=== PATIENT | female | born 1975 | race Two or more races ===

== ENCOUNTER 2024-09-07 11:45 | Outpatient (RCR) | payer BC, SELFPAY ==
[2024-09-06 16:10] LABS: Basophils % (Auto) 0 % (0-2.5); Eosinophils # (Auto) 0.1 Thou/mm3 (0.0-0.5); Eosinophils % (Auto) 3 % (0-10); Hematocrit 35.9 % (36.0-46.0); Hemoglobin 12.4 g/dL (12.0-16.0); Immature Granulocytes % (Auto) 0 % (0-0); Immature Granulocytes Auto 0.01 Thou/mm3 (0.00-0.00); Lymphocytes # (Auto) 1.9 Thou/mm3 (1.0-4.8); Lymphocytes % (Auto) 39 % (10-50); Mean Corpuscular HGB Conc 34.5 g/dl (31.0-37.0); Mean Corpuscular Hemoglobin 31.3 pg (25.0-35.0); Mean Corpuscular Volume 91 fL (80-100); Monocytes # (Auto) 0.5 Thou/mm3 (0.0-0.8); Monocytes % (Auto) 11 % (0-12); Neutrophils # (Auto) 2.3 Thou/mm3 (1.8-7.7); Neutrophils % (Auto) 47 % (37-80); Nucleated Red Blood Cell % 0 /100 WBC (0); Platelet Count 224 Thou/mm3 (140-440); RDW Standard Deviation 40.7 fL (36.4-46.3); Red Blood Count 3.96 Miln/mm3 (4.00-5.20); White Blood Count 4.8 Thou/mm3 (3.6-11.0)
[2024-09-06 17:43] LABS: Alanine Aminotransferase 25 U/L (10-49); Albumin, Serum 4.4 gm/dL (3.5-5.0); Albumin/Globulin Ratio 1.6 (1.2-2.2); Alkaline Phosphatase 77 U/L (46-116); Anion Gap 10 (7-16); Aspartate Amino Transferase 19 U/L (0-34); BUN/Creatinine Ratio 28 Ratio (12-20); Bilirubin,Total 0.2 mg/dL (0.3-1.2); Blood Urea Nitrogen 17 mg/dL (9-23); Calcium 9.7 mg/dL (8.3-10.6); Calcium (Corrected) 9.7 mg/dL (8.5-10.1); Carbon Dioxide 24.9 mMol/L (20.0-31.0); Chloride 105 mMol/L (98-107); Creatinine (Component) 0.6 mg/dL (0.6-1.3); Globulin 2.8 gm/dL (2.3-3.5); Glucose 83 mg/dL (74-106); Osmolality,Calculated 279 (275-295); Potassium 3.6 mMol/L (3.4-5.1); Sodium 140 mMol/L (136-145); Total Protein 7.2 gm/dL (5.7-8.2); eGFR > 60 See Note
== END 2024-09-07 23:59 | disposition home or self-care (01) ==
LOC: SCTC 11:45
PROVIDERS: Internal Medicine Hematology & Oncology; PCP Internal Medicine; Referring Provider Internal Medicine; Visit Provider Nurse Practitioner Family
DX: Z08 Encounter for follow-up examination after completed treatment for malignant neoplasm (principal); Z85.3 Personal history of malignant neoplasm of breast; Z90.11 Acquired absence of right breast and nipple; Z86.2 Personal history of diseases of the blood and blood-forming organs and certain disorders involving the immune mechanism
CPT/HCPCS: 36591; 80053; 85025; 99212; A4216; J1642; G0463

== ENCOUNTER → 2025-02-04 | Outpatient (CLI) | payer BC, SELFPAY ==
[2025-02-04 11:21] LABS: Basophils % (Auto) 0 % (0-2.5); Eosinophils # (Auto) 0.1 Thou/mm3 (0.0-0.5); Eosinophils % (Auto) 2 % (0-10); Hematocrit 39.1 % (36.0-46.0); Hemoglobin 13.4 g/dL (12.0-16.0); Immature Granulocytes % (Auto) 0 % (0-0); Immature Granulocytes Auto 0.01 Thou/mm3 (0.00-0.00); Lymphocytes # (Auto) 1.5 Thou/mm3 (1.0-4.8); Lymphocytes % (Auto) 28 % (10-50); Mean Corpuscular HGB Conc 34.3 g/dl (31.0-37.0); Mean Corpuscular Hemoglobin 31.7 pg (25.0-35.0); Mean Corpuscular Volume 92 fL (80-100); Monocytes # (Auto) 0.4 Thou/mm3 (0.0-0.8); Monocytes % (Auto) 8 % (0-12); Neutrophils # (Auto) 3.3 Thou/mm3 (1.8-7.7); Neutrophils % (Auto) 62 % (37-80); Nucleated Red Blood Cell % 0 /100 WBC (0); Platelet Count 285 Thou/mm3 (140-440); RDW Standard Deviation 44.7 fL (36.4-46.3); Red Blood Count 4.23 Miln/mm3 (4.00-5.20); White Blood Count 5.4 Thou/mm3 (3.6-11.0)
[2025-02-04 11:32] LABS: Glucose Estimated Average 88 mg/dL (80-131); Hemoglobin A1C 4.7 % Hgb (4.8-6.0)
[2025-02-04 11:34] LABS: Parathyroid Hormone Intact 70.6 pg/ml (18.5-88.0)
[2025-02-04 11:40] LABS: Alanine Aminotransferase 18 U/L (10-49); Albumin, Serum 4.4 gm/dL (3.5-5.0); Albumin/Globulin Ratio 1.8 (1.2-2.2); Alkaline Phosphatase 63 U/L (46-116); Anion Gap 9 (7-16); Aspartate Amino Transferase 18 U/L (0-34); BUN/Creatinine Ratio 19 Ratio (12-20); Bilirubin,Total 0.6 mg/dL (0.3-1.2); Blood Urea Nitrogen 13 mg/dL (9-23); Calcium 9.9 mg/dL (8.3-10.6); Calcium (Corrected) 9.9 mg/dL (8.5-10.1); Carbon Dioxide 28.1 mMol/L (20.0-31.0); Chloride 106 mMol/L (98-107); Cholesterol 145 mg/dL (132-200); Creatinine (Component) 0.7 mg/dL (0.6-1.3); Folate 14.25 ng/mL (>5.38); Globulin 2.5 gm/dL (2.3-3.5); Glucose 81 mg/dL (74-106); HDL Cholesterol 49 mg/dL (40-60); LDL Cholesterol,Calculated 76 mg/dL (0-130); Osmolality,Calculated 284 (275-295); Potassium 4.2 mMol/L (3.4-5.1); Sodium 143 mMol/L (136-145); Thyroid Stimulating Hormone 1.45 uIU/mL (0.55-4.78); Total Protein 6.9 gm/dL (5.7-8.2); Triglycerides 102 mg/dL (30-150); Vitamin B12 668 pg/mL (211-911); eGFR > 60 See Note
[2025-02-04 11:42] LABS: Ferritin 101 ng/mL (7.3-270.7); Iron 100 mcg/dL (50-170); Total Iron Binding Capacity 381 mcg/dL (250-425)
[2025-02-04 11:55] LABS: Urea Breath Test Positive (Negative)
[2025-02-09 06:49] LABS: Vitamin D,1,25 (OH)2,Total 35 pg/mL (18-72); Vitamin D2, 1,25 (OH)2 <8 pg/mL; Vitamin D3, 1,25 (OH)2 35 pg/mL
== END | disposition home or self-care (01) ==
LOC: COPL 10:21
PROVIDERS: PCP Specialist; Referring Provider Surgery; Visit Provider Surgery
DX: B18.2 Chronic viral hepatitis C (principal); E56.9 Vitamin deficiency, unspecified; K30 Functional dyspepsia; R12 Heartburn; R53.81 Other malaise; R53.82 Chronic fatigue, unspecified; Z98.84 Bariatric surgery status
CPT/HCPCS: 36415; 80053; 80061; 82607; 82652; 82728; 82746; 83013; 83014; 83036; 83540; 83550; 83970; 84207; 84425; 84443; 85025

== ENCOUNTER → 2025-02-28 | Outpatient (CLI) | payer BC, SELFPAY ==
[2025-02-28 16:26] LABS: Basophils % (Auto) 1 % (0-2.5); Eosinophils # (Auto) 0.2 Thou/mm3 (0.0-0.5); Eosinophils % (Auto) 2 % (0-10); Hematocrit 37.9 % (36.0-46.0); Hemoglobin 12.7 g/dL (12.0-16.0); Immature Granulocytes % (Auto) 0 % (0-0); Immature Granulocytes Auto 0.03 Thou/mm3 (0.00-0.00); Lymphocytes # (Auto) 1.9 Thou/mm3 (1.0-4.8); Lymphocytes % (Auto) 27 % (10-50); Mean Corpuscular HGB Conc 33.5 g/dl (31.0-37.0); Mean Corpuscular Hemoglobin 31.3 pg (25.0-35.0); Mean Corpuscular Volume 93 fL (80-100); Monocytes # (Auto) 0.7 Thou/mm3 (0.0-0.8); Monocytes % (Auto) 9 % (0-12); Neutrophils # (Auto) 4.3 Thou/mm3 (1.8-7.7); Neutrophils % (Auto) 61 % (37-80); Nucleated Red Blood Cell % 0 /100 WBC (0); Platelet Count 238 Thou/mm3 (140-440); RDW Standard Deviation 45.6 fL (36.4-46.3); Red Blood Count 4.06 Miln/mm3 (4.00-5.20); White Blood Count 7.1 Thou/mm3 (3.6-11.0)
[2025-02-28 16:42] LABS: Alanine Aminotransferase 19 U/L (10-49); Albumin/Globulin Ratio 1.8 (1.2-2.2); Alkaline Phosphatase 62 U/L (46-116); Anion Gap 8 (7-16); Aspartate Amino Transferase 17 U/L (0-34); BUN/Creatinine Ratio 17 Ratio (12-20); Bilirubin,Total 0.2 mg/dL (0.3-1.2); Blood Urea Nitrogen 10 mg/dL (9-23); Calcium 9.4 mg/dL (8.3-10.6); Calcium (Corrected) 9.4 mg/dL (8.5-10.1); Chloride 109 mMol/L (98-107); Creatinine (Component) 0.6 mg/dL (0.6-1.3); Globulin 2.2 gm/dL (2.3-3.5); Glucose 63 mg/dL (74-106); Osmolality,Calculated 281 (275-295); Sodium 143 mMol/L (136-145); Total Protein 6.2 gm/dL (5.7-8.2); eGFR > 60 See Note
== END | disposition home or self-care (01) ==
LOC: SCTO 15:18
PROVIDERS: PCP Internal Medicine; Referring Provider Nurse Practitioner Family; Visit Provider Nurse Practitioner Family
DX: C50.411 Malignant neoplasm of upper-outer quadrant of right female breast (principal); C78.7 Secondary malignant neoplasm of liver and intrahepatic bile duct; C79.2 Secondary malignant neoplasm of skin
CPT/HCPCS: 36415; 80053; 85025

== ENCOUNTER 2025-03-07 15:42 | Outpatient (RCR) | payer BC, SELFPAY ==
--- NOTE | 2025-03-27 16:22 | CTCFLWUP_ITS ---
Patient: CHIRAG NOONAN : 1975 Page 7 of 8 FOLLOW UP NOTE DATE OF SERVICE: 03/07/2025 NAME: CHIRAG NOONAN ACCOUNT: [id number] : 1975 AGE: 49 INTERVAL HISTORY: Patient in for follow-up visit for breast cancer and anemia. History of right breast cancer 2009. PET scan negative 07/2023. a patient with history of right breast cancer (2009), underwent right mastectomy and completed Herceptin treatment in 2018. She had sleeve gastrectomy in December 2022 using the accordion technique. Previously noted iron deficiency has resolved with normal hemoglobin levels. She is scheduled for breast reconstruction surgery on April 14 at [facility] involving breast removal and fat transfer. 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 The patient's port has been removed, and her previously noted iron deficiency has improved. Recent laboratory tests show normal hemoglobin levels and resolution of iron deficiency. The patient underwent sleeve gastrectomy surgery two years ago, on December 29, 2022, using a new procedure called accordion which folds the stomach and sutures without a cut. Prior to surgery, the patient tried Ozempic, which was effective, but it has not been as effective post-surgery. The patient's current goal weight is between 175-195 pounds. The patient is scheduled for breast reconstruction surgery on April 14 at [facility], involving two surgeons: one for breast removal and another for fat transfer. The patient reports no need for mammograms following the breast removal procedure. Medications and Supplements - Herceptin - Last treatment in 2018. - Ozempic - Tried before surgery. Worked well. - Not effective after surgery. 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 Maintenance 08/19/2013 1 21 Palliative Trastuzumab?6?mg/kg? Maintenance 08/19/2013 1 21 Palliative INJECTAFER 11/11/2023 1 14 Palliative HISTORY OF PRESENT ILLNESS: Chirag Noonan is a 49-year-old female with following breast cancer history. 08/08/2009: Patient had right breast stereotactic core biopsy. Pathology specimen showed grade 3 infiltrating ductal carcinoma. ER negative and AR negative. HER-2/shanna was strongly positive. She was also found to have metastatic disease in the liver at the time. Patient was started on Herceptin. 09/20/2009: CT scan of the abdomen with contrast? she never had the liver lesions biopsied. 05/08/2010: Patient had right breast modified radical mastectomy which showed 8 mm poorly differentiated invasive mammary carcinoma. 14 lymph nodes were negative for metastatic disease. Patient was continued on Herceptin in view of the metastatic nature of her disease. 02/18/2011 patient was continued on Herceptin till 08/19/2013. 05/30/2018: Patient had a PET CT scan done which was essentially negative study. 07/02/2018: Patient received lost Herceptin treatment. 10/05/2018: The first CT scan that is available to be was done on 09/20/2009 which showed multiple hepatic lesions consistent with metastatic disease. However these lesions were never biopsied. According to the patient she actually had a PET/CT scan at that time and [place] which apparently showed lesions in the liver. That report is not available to me. Since then all the scans did not show any evidence of disease in the liver. 11/04/2018: CT scan of the chest and abdomen with IV contrast is a negative study for any metastatic disease. 06/14/2019: CT scan of the chest abdomen and pelvis with IV contrast?no interval metastatic disease. 06/23/2020: PET CT scan? 10/12/2021: PET/CT scan? 11/06/2021: CT scan of the pelvis without IV contrast? 12/07/2021: Pelvic ultrasound 12/17/2022: Ms. Noonan had a gastric sleeve surgery 08/06/2023: PET/CT scan negative for metastatic disease. 10/24/2023: Hemoglobin 10.6, MCV 86, WBC 8.1, ANC 5.2, platelets 226,000, creatinine 0.5, iron saturation 12%, ferritin 6 OTHER MEDICAL HISTORY/CONDITIONS: FAMILY HISTORY: SOCIAL HISTORY: OUTREACH MANAGER HISTORY: MEDICATIONS: 1. Calcium + D - 600 mg(1,500mg) -200 unit 1 tab Three times a day 2. multivitamin with iron - Daily Medications Last Reconciled by Meghan Childers MA on 09/07/2024 (Reconcile on Approval: ?) ALLERGIES: No Known Drug Allergies REVIEW OF SYSTEMS: A complete 14-point review of systems was performed and is negative except as noted in interval history. PHYSICAL EXAMINATION: VITAL SIGNS: Temperature?98.5, B/P?172/82, Oxygen?Saturation?95% Weight?210?lbs PAIN: 0 - No pain ECOG Performance Status: 0 - Asymptomatic and fully active GENERAL APPEARANCE: Appears well, in no apparent distress, appropriately interactive. HEENT: Normocephalic, normal conjunctiva, normal hearing, lips without lesions, neck normal range of motion. CARDIOVASCULAR: Not assessed. PULMONARY: Normal respiratory effort, no respiratory distress or use of accessory muscles, speaking in full sentences, no tachypnea. CHEST: Port on right side of chest EXTREMITIES: No cyanosis. SKIN: Normal skin appearance. NEUROLOGIC: Alert and oriented x4. PSHYCHIATRIC: Appropriate affect, mood normal, behavior normal, intact thought and speech. LABORATORY DATA: I have personally reviewed and interpreted each of the patient?s relevant lab tests, abnormal findings are below: Date 02/04/25 02/28/25 ??WHITE?BLOOD?COUNT?(Thou/mm3) ? 7.1 ??RED?BLOOD?COUNT?(Miln/mm3) ? 4.06 ??HEMOGLOBIN?(gm/dl) ? 12.7 ??HEMATOCRIT?(%) ? 37.9 ??PLATELET?COUNT?(Thou/mm3) ? 238 ??NEUTROPHILS?%,?AUTO?(%) ? 61 ??LYMPH?%,?AUTO?(%) ? 27 ??NEUTROPHILS,?AUTO?(Thou/mm3) ? 4.3 ??GLUCOSE,RANDOM?(mg/dL) 81 63?L ??BLOOD?UREA?NITROGEN?(mg/dL) 13 10 ??CREATININE?(mg/dL) 0.70 0.60 ??SODIUM?(mmol/L) 143 143 ??POTASSIUM?(mmol/L) 4.2 4.0 ??CHLORIDE?(mmol/L) 106 109?H ??CrCl?(CandG)?(ml/min) 153.15 178.68 ??AST/SGOT?(Unit/L) 18 17 ??ALT/SGPT?(Unit/L) 18 19 ??ALKALINE?PHOSPHATASE?(Unit/L) 63 62 ??BILIRUBIN,?TOTAL?(mg/dL) 0.6 0.2?L ??PROTEIN?TOTAL?(gm/dl) 6.9 6.2 ??ALBUMIN,?SERUM?(gm/dl) 4.4 4.0 ??GLOBULIN?(gm/dl) 2.5 2.2?L ??ALBUMIN/GLOBULIN?RATIO 1.8 1.8 ??CALCIUM,?SERUM?(mg/dL) 9.9 9.4 ??CALCIUM?SERUM?(CORRECTED)?(mg/dL) 9.9 9.4 ??TOTAL?IRON?BINDING?CAP?(S*)?(mcg/dL) 381 ? ASSESSMENT/PLAN: 1. ER AR negative HER-2/shanna overexpressed infiltrating ductal carcinoma of right breast with questionable history of liver metastases (09/20/2009). s/p right mastectomy Questionable history of metastatic breast cancer as described above. s/p Herceptin, 07/02/2018 was the last treatment. PET/CT scan negative (08/06/2023) Assessment: Patient has a history of right breast cancer diagnosed in 2009. She underwent right mastectomy and completed Herceptin treatment in 2018. The port has been removed. Recent labs show normal hemoglobin and no iron deficiency, indicating improvement in her previously noted iron deficiency. Patient is scheduled for breast reconstruction surgery on April 14 at [facility], involving two surgeons: one for breast removal and one for fat transfer. Iron deficiency anemia. Resolved with Injectafer infusions (11/11/2023 - 11/18/2023) Ms. Noonan had gastric sleeve surgery on 12/17/2022. Plan: - Monitor B12 and folic acid levels, especially in light of previous sleeve gastrectomy - Order ferritin, B12, folic acid, and naterra cancer tests - No mammogram required after breast removal - Proceed with scheduled breast reconstruction surgery on April 14 at [facility] ORDERS: Order # Description [id number] Comprehensive Metabolic Panel - 12 + CBC with Auto Diff [id number] Ferritin + Iron Panel + Vitamin B-12 + Folic Acid; Serum [id number] MD Follow Up 6 Month RETURN TO CLINIC: I reviewed the diagnosis, prognosis, and recommended treatment/procedure options with the patient (and/or their legal asset protection representative), including the potential benefits, risks, side effects and alternative therapies. We also discussed the option of no treatment and the possibility of clinical trial participation, if applicable. All questions were addressed, and they demonstrated understanding. They provided informed consent to proceed with the proposed plan of care. BILLING AND COMPLIANCE: I reviewed external records from providers outside my specialty as summarized above. I spent a total of 50 minutes on this patient?s care on the day of their visit excluding time spent related to any billed procedures. This time includes time spent with the patient as well as time spent documenting in the medical record, reviewing patients records and tests, obtaining history, placing orders, communicating with other healthcare professionals, counseling the patient, family or caregiver, and/or care coordination for the diagnoses above. Electronically Signed by: {Object.Sanct_ID*PnP.NameFL@M}, {Object.Sanct_ID*PnP.Suffix@U} D: {Object.Sanct_Date} T: {Object.Sanct_Time} CC: Alonso?Nitin,? PCP: Yves Odell Referring: Yves Odell This document was completed utilizing speech recognition software. Grammatical errors, random word insertions, pronoun errors, and incomplete sentences are an occasional consequence of this system due to software limitations, ambient noise, and hardware issues. Any formal questions or concerns about the content, text or information contained within the body of this dictation should be directly addressed to the provider for clarification.
== END 2025-03-07 23:59 | disposition home or self-care (01) ==
LOC: SCTC 15:42
PROVIDERS: PCP Internal Medicine; Referring Provider Internal Medicine; Visit Provider Internal Medicine Hematology & Oncology
DX: D50.9 Iron deficiency anemia, unspecified (principal); Z85.3 Personal history of malignant neoplasm of breast; Z90.11 Acquired absence of right breast and nipple; Z92.21 Personal history of antineoplastic chemotherapy; Z98.84 Bariatric surgery status
CPT/HCPCS: 99213; G0463

== ENCOUNTER → 2025-04-05 | Outpatient (CLI) | payer BC, SELFPAY ==
--- NOTE | 2025-04-05 16:15 | XR_ITS ---
Examination: Abdomen sonogram, Limited Date and time of exam: April 05, 2025, 1627 hours INDICATIONS: Abnormal liver function tests on laboratory examination February 28, 2025 Technique: Real-time alfred scale transabdominal sonographic images of the upper abdomen obtained. Findings: Absent gallbladder Common bile duct 1.0 cm, no stones Pancreatic head 2.1 cm Liver 19.5 cm fatty infiltration Normal hepatopedal portal venous flow Patent IVC IMPRESSION: Common bile duct 1.0 cm, if biliary colic is a clinical consideration, suggest MRCP follow-up
[2025-04-05 17:04] LABS: Collection Type, Urine Clean Catch
--- NOTE | 2025-04-05 17:17 | EKG_ITS ---
[facility] Test Date: 2025-04-05 Pat Name: CHIRAG NOONAN Department: Room: - Gender: Female Cabana Attendant: RTSJC : 1975 Requested By: Harjit Saldaña Order Number: [id number] Reading MD: Harjit Saldaña Measurements Intervals [place] Rate: 65 P: 33 IA: 148 QRS: 12 QRSD: 97 T: 23 QT: 390 QTc: 406 Interpretive Statements SINUS RHYTHM Compared to ECG 01/25/2022 11:35:17 Incomplete right bundle-branch block no longer present T-wave abnormality no longer present /store/S0/[id number]/ecg/[id number].pdf
[2025-04-05 17:46] LABS: Basophils # (Auto) 0.0 Thou/mm3 (0.0-0.2); Basophils % (Auto) 1 % (0-2.5); Eosinophils # (Auto) 0.3 Thou/mm3 (0.0-0.5); Eosinophils % (Auto) 4 % (0-10); Hematocrit 37.9 % (36.0-46.0); Hemoglobin 12.4 g/dL (12.0-16.0); Immature Granulocytes Auto 0.01 Thou/mm3 (0.00-0.00); Lymphocytes # (Auto) 2.1 Thou/mm3 (1.0-4.8); Lymphocytes % (Auto) 34 % (10-50); Mean Corpuscular HGB Conc 32.7 g/dl (31.0-37.0); Mean Corpuscular Hemoglobin 31.5 pg (25.0-35.0); Mean Corpuscular Volume 96 fL (80-100); Monocytes # (Auto) 0.5 Thou/mm3 (0.0-0.8); Monocytes % (Auto) 7 % (0-12); Neutrophils # (Auto) 3.4 Thou/mm3 (1.8-7.7); Neutrophils % (Auto) 54 % (37-80); Nucleated Red Blood Cell # 0.00 Thou/mm3 (0.00-0.00); Nucleated Red Blood Cell % 0 /100 WBC (0); Platelet Count 239 Thou/mm3 (140-440); RDW Standard Deviation 47.1 fL (36.4-46.3); Red Blood Count 3.94 Miln/mm3 (4.00-5.20); White Blood Count 6.3 Thou/mm3 (3.6-11.0)
[2025-04-05 17:49] LABS: Bilirubin,Urine Negative (Negative); Blood,Urine Negative (Negative); Clarity,Urine Clear (Clear/Hazy); Color,Urine Lt-Yellow (Lt Yel-Yel); Glucose, Urine Negative (Negative); Ketones,Urine Negative (Negative); Leukocyte Esterase,Urine Negative (Negative); Nitrite,Urine Negative (Negative); PH,Urine 6.0 (5.0-7.0); Protein,Urine Negative (Neg - Trace); RBC,Urine 7 /hpf (0-3); Specific Gravity,Urine 1.026 (1.001-1.035); Squamous Epithelial Cell,Urine 2 /hpf (0-5); Urobilinogen,Urine Negative mg/dL (0.0-1.0); WBC,Urine 1 /hpf (0-5)
[2025-04-05 17:57] LABS: INR 1.0 (0.9-1.3); Partial Thromboplastin Time 27.3 Seconds (22.0-36.0); Prothrombin Time 10.6 Seconds (9.0-12.2)
[2025-04-05 18:36] LABS: Alanine Aminotransferase 21 U/L (10-49); Albumin, Serum 4.6 gm/dL (3.5-5.0); Albumin/Globulin Ratio 1.8 (1.2-2.2); Alkaline Phosphatase 63 U/L (46-116); Anion Gap 10 (7-16); Aspartate Amino Transferase 18 U/L (0-34); BUN/Creatinine Ratio 23 Ratio (12-20); Bilirubin,Direct 0.1 mg/dL (0.0-0.3); Bilirubin,Total 0.3 mg/dL (0.3-1.2); Blood Urea Nitrogen 16 mg/dL (9-23); Calcium 10.5 mg/dL (8.3-10.6); Calcium (Corrected) 10.5 mg/dL (8.5-10.1); Carbon Dioxide 26.4 mMol/L (20.0-31.0); Chloride 108 mMol/L (98-107); Creatinine (Component) 0.7 mg/dL (0.6-1.3); Globulin 2.6 gm/dL (2.3-3.5); Glucose 80 mg/dL (74-106); Osmolality,Calculated 287 (275-295); Potassium 3.9 mMol/L (3.4-5.1); Sodium 144 mMol/L (136-145); Total Protein 7.2 gm/dL (5.7-8.2); eGFR > 60 See Note
[2025-04-05 19:32] LABS: Glucose Estimated Average 97 mg/dL (80-131); Hemoglobin A1C 5.0 % Hgb (4.8-6.0)
[2025-04-05 19:34] LABS: AFP Non-Pregnant 6.00 ng/mL (<8.10)
== END | disposition home or self-care (01) ==
LOC: CDIM 16:21 → COPL 16:39
PROVIDERS: Specialist; PCP Internal Medicine; Referring Provider Internal Medicine; Visit Provider Radiology Diagnostic Radiology
DX: R94.5 Abnormal results of liver function studies (principal); Z00.00 Encounter for general adult medical examination without abnormal findings; E78.5 Hyperlipidemia, unspecified
CPT/HCPCS: 36415; 76705; 80053; 81001; 82105; 82248; 83036; 85025; 85610; 85730; 93005

== ENCOUNTER 2025-05-15 14:34 | Emergency (ER) | payer BC, SELFPAY ==
[2025-05-15 14:35] VITALS: BMI 45.3
[2025-05-15 14:58] VITALS: BP 138/80; PULSE 91; RESP 18; TEMP 36.9; O2SAT 99
[2025-05-15] MEDS: DIPHTH,PERTUSS(ACELL),TET VAC 0.5 ML SYR- ADULT IMi (16:21)
--- NOTE | 2025-05-15 16:42 | PC.NURSE ---
went over with patient the CDC information regarding rabies AFTER cat was vaccinated and informed pt of the [facility] for further information
--- NOTE | 2025-05-15 17:37 | EDNOTE_ITS ---
Upper Extremity Injury RME/HPI General Chief Complaint: Hand/Wrist Problems Stated Complaint: CAT BITE TO LEFT HAND TODAY Time Seen by Provider: 05/15/25 15:20 Arrival date/time: 05/15/25 14:34 This is a 50-year-old female that reports a cat bite. That happened prior to arrival. Patient states that this is a street cat that she recently started domestic eating. Patient recently got the cat's vaccinations and even had a rabies shot. Per patient it has not been the 28 days for the rabies shot and she is concerned that cat can have rabies. Patient has puncture wounds to her's left third digit and some cat scratches to her left second digit. Patient has no lacerations. No erythema no swelling. Patient does have a history of breast cancer. Patient has not had any kind of treatment for breast cancer for over 5 years. Patient is diabetic Related Data Home Medications ?Medication ?Instructions ?Recorded ?Confirmed oxybutynin chloride 10 mg 10 mg PO DAILY 05/23/2001/07 tablet,extended release 24 hr diclofenac potassium 50 mg tablet 1 tab PO BID 2 01/25/22 ergocalciferol (vitamin D2) 1,250 1,250 mcg PO QWEEK 0 01/25/22 01/25/22 mcg (50,000 unit) capsule (Vitamin D2) famotidine-Ca carb-mag hydrox 10 1 tab PO QDAY PRN Aci d Reflux 01/25/22 01/25/22 mg-800 mg-165 mg chewable tablet (Pepcid Complete) hydrocodone 7.5 mg-acetaminophen 0.5 tab PO Q8HR PRN P ain 01/25/22 01/25/22 325 mg tablet Held on 01/25/22. Instructions: Resume on 01/26/22. metformin 500 mg tablet 1 tab PO DAILY 01/25/2201/07 montelukast 10 mg tablet 1 tab PO DAILY 01/25/2201/07 vitamin E 268 mg (400 unit) capsule 1 cap PO DAILY 01/25/22 Previous Rx's ?Medication ?Instructions ?Recorded doxycycline hyclate 100 mg tablet 100 mg PO BID #14 ta bs 05/15/25 Allergies Allergy/AdvReac Type Severity Reaction Status Date / Time No Known Allergies Allergy Verified 05/18/25 17:44 Review of Systems Review of Systems Systems Reviewed: All systems reviewed, normal except as documented Past Medical History Past Medical History GASTROINTESTINAL: Positive Obesity REPRODUCTIVE: Positive Breast Cancer (right mastectomy) ENDOCRINE: Positive Diabetes Mellitus Type 2 OTHER HISTORY: Positive Chemotherapy (breast cancer right 10 yeats ago), Radiation Therapy (10 years ago) and Breast Cancer (right mastectomy) Surgical History SURGICAL: Positive Abdominal Surgery, Mastectomy (right side, multiple reconstruction) and Section (x3) Social History SMOKING STATUS: Never smoker SUBSTANCE USE: does not use ALCOHOL: Never ED Exam Narrative Physical exam: VITAL SIGNS: Reviewed. GENERAL APPEARANCE: Alert and interactive, follows commands, no acute distress HEAD AND FACE: Non-traumatic. ENT: PERRL, conjuctiva pink and clear, eyelid no trauma, Mucous membrane moist. NECK: Supple, nontender, no nuchal rigidity. CHEST: No tenderness, no crepitus, no paradoxical movement, no retractions. LUNGS: breathing even and unlabored HEART: Regular rate, cap refill less than 2 seconds ABDOMEN: Soft, nondistended, no guarding, nontender NEUROLOGICAL: Gross motor function intact sensory function intact, Appropriate for age. MUSCULOSKELETAL: low back nontender, full range of motion. EXTREMITIES: No redness no swelling no skin breakdown on bilateral foot and leg. Distal neurovascular status intact bilateral foot SKIN: Color pink, dry puncture wounds to her's left third digit and some cat scratches to her left second digit. Course Quality Measures none Orders Category Date Time Status Doxycycline [Vibramycin] Med 05/15/25 17:24 Discontinued 100 mg PO X1 ONE Rabies Immune Globulin/Thimer [Kedrab Inj] Med 05/15/25 17:23 Discontinued 2,175 iu IM X1 ONE Rabies Vaccine (Pcec)/Pf [Rabavert Rabies Vacc w/ Med 05/15/25 17:23 Discontinued Diluent] 2.5 unit IM .ONCE ONE TET,DIP/PERT AC (Adult)-Tdap [Boostrix Adult (Tdap) Med 05/15/25 16:13 Discontinued Vacc] 0.5 ml IMI .ONCE ONE Vital Signs Vital signs: Vital Signs Temperature 98.5 F 05/15/25 14:58 Pulse Rate 91 05/15/25 14:58 Respiratory Rate 18 05/15/25 14:58 Blood Pressure 138/80 H 05/15/25 14:58 Pulse Oximetry (%) 99 05/15/25 14:58 Oxygen Delivery Method Room Air 05/15/25 14:58 Extremity Injury MDM Narrative MDM Narrative:: I spoke to patient at length. I explained to her that the probability of the cat actually having rabies is likely low. Patient Was recently vaccinated and although it has not been in 30 days the likelihood of the cat having rabies is low patient would like to still get the vaccine. I did educate the patient at length about this. I spoke to pharmacy to talk about the dosing. I explained to patient that she will need to come back on day 3,7, 14, and possibly 28. Today patient will receive rabies vaccine and also rabies immunoglobulin. I gave patient a dose of doxycycline and a tetanus shot. Patient told to come back to the emergency room symptoms change or worsen. Dragon dictation: Although this document has been carefully reviewed, there may still be some phonetic and other typographical errors. These errors are purely grammatical due to imperfections in the software program and should not be construed in any way to compromise the substance of the patient's medical care during this visit. Patient data External records reviewed:: [facility] previous records Clinical information provided by:: patient Social determinants that could affect healthcare access:: none Patient has the following chronic illnesses:: none How is presenting disease/condition affected by chronic disease/condition?: no chronic disease Evaluation data The following diagnostics were reviewed and interpreted by me:: other (specify) (none) Lab and/or radiology exams considered but not ordered:: none Interpretation Summary: see note Medications / Prescriptions Medications or Prescriptions considered but not ordered:: none Medication administrations:: Medication Administration History Discontinued Medications Diphtheria/Tetanus/Acell Pertussis (Diphth,Pertuss(Acell),Tet Vac 0.5 Ml Syr- Adult) 0.5 ml IMi .ONCE ONE Stop: 05/15/25 16:14 Last Admin: 05/15/25 16:21 Dose: 0.5 ml Documented By: ADELINA Doxycycline Hyclate (Doxycycline 100 Mg Tablet) 100 mg PO X1 ONE Stop: 05/15/25 17:25 Last Admin: 05/15/25 18:34 Dose: 100 mg Documented By: ADELINA Rabies Immune Globulin (Rabies Imm Glob (Human) 150 Iu/Ml Vial 2ml) 2,175 iu IM X1 ONE Stop: 05/15/25 17:24 Last Admin: 05/15/25 18:15 Dose: 2,175 iu Documented By: ADELINA Comments: given to bilaterally im muscular sites Rabies Vaccine Chick Embryo Cell (Rabies Vaccine (Pcec)/Pf 2.5 Unit/Ml Vial) 2.5 unit IM .ONCE ONE Stop: 05/15/25 17:24 Last Admin: 05/15/25 18:31 Dose: 2.5 unit Documented By: ADELINA see mar Consultations Consultation(s) initiated? (list below): No Diagnosis Upper Extremity Injury Differential Diagnosis: other (cat bite, puncture wounds, cellulitis ) Most likely diagnosis given after review of the tests above:: rabies exposure Admission Indicated Admission indicated?: not indicated Admission Request Was there a request for admission?: No Disposition Plan Disposition Plan: Discharge Discharge Attestation Discharge Attestation: The patient and all family members were given an opportunity to ask questions and understood the discharge instructions. Discharge instructions specifically effects, indications for sooner follow up or return to the emergency department, and the expected course of current diagnosis. Patient condition: Stable Discharge Plan Plan Patient Disposition: HOME (Self Care) Patient condition on transfer: Stable Prescriptions/Referrals Prescriptions/Med Rec: New doxycycline hyclate 100 mg tablet 100 mg PO BID Qty: 14 0RF No Action oxybutynin chloride 10 mg tablet extended release 24hr 10 mg PO DAILY metformin 500 mg tablet 1 tab PO DAILY Patient Comments: TAKE 1 TABLET BY MOUTH TWICE A DAY NEEDED hydrocodone-acetaminophen 7.5-325 mg tablet 0.5 tab PO Q8HR PRN (Reason: Pain) Patient Comments: TAKE 1/2 TABLET BY MOUTH EVERY DAY diclofenac potassium 50 mg tablet 1 tab PO BID Patient Comments: TAKE 1 TABLET BY MOUTH TWICE A DAY montelukast 10 mg tablet 1 tab PO DAILY Patient Comments: TAKE 1 TABLET BY MOUTH EVERY DAY ergocalciferol (vitamin D2) [Vitamin D2] 1,250 mcg (50,000 unit) Capsule 1,250 mcg PO QWEEK vitamin E 400 unit Capsule 1 cap PO DAILY Pepcid Complete 10-800-165 mg Tablet,Chewable 1 tab PO QDAY PRN (Reason: Acid Reflux) Referrals: Yves Odell MD [Primary Care Provider, Nephrology] - In 1 week Problem List Clinical Impression: Need for post exposure prophylaxis for rabies, Cat bite Patient/Caregiver Discharge Instructions Discharge Activity: activity as tolerated Education Materials: ED Animal Bite (General) Additional Instructions: Follow up with primary provider in 1-2 days. Come back to ED if symptoms change or worsen. will need to come back on day 3,7, 14, and possibly 28 for rabies vaccine. Print Language: Mauritian Stand Alone Forms: [place] Award Info., Patient Portal Info Letter PA/MANUFACTURERS SERVICE REPRESENTATIVE Supervising Physician PA/MANUFACTURERS SERVICE REPRESENTATIVE Supervising Physician: yanira
[2025-05-15] MEDS: RABIES IMM GLOB (HUMAN) 150 IU/ML VIAL 2ML 2175 IU IM (18:15)
[2025-05-15] MEDS: RABIES VACCINE (PCEC)/PF 2.5 UNIT/ML VIAL IM (18:31)
[2025-05-15] MEDS: DOXYCYCLINE 100 MG TABLET PO (18:34)
[2025-05-15 18:35] VITALS: BP 140/74; PULSE 82; RESP 18; TEMP 36.6; O2SAT 100
== END 2025-05-15 18:38 | disposition home or self-care (01) ==
PROVIDERS: Emergency Provider Emergency Medicine; PCP Internal Medicine
DX: Z20.3 Contact with and (suspected) exposure to rabies (principal); S61.233A Puncture wound without foreign body of left middle finger without damage to nail, initial encounter; S60.411A Abrasion of left index finger, initial encounter; W55.01XA Bitten by cat, initial encounter; W55.03XA Scratched by cat, initial encounter; Z23 Encounter for immunization
CPT/HCPCS: 90377; 90471; 90472; 90675; 90715; 96372; 99283; A9270

== ENCOUNTER 2025-05-18 17:42 | Emergency (ER) | payer BC, SELFPAY ==
[2025-05-18 18:24] VITALS: BP 128/68; PULSE 85; RESP 18; TEMP 36.9; O2SAT 100
--- NOTE | 2025-05-18 18:46 | PD.EDANIML ---
ED Animal Bite RME/HPI General Chief Complaint: General Adult/Misc Complain Stated Complaint: HERE FOR DAY 3 RABIES SHOT Time Seen by Provider: 05/18/25 18:38 Arrival date/time: 05/18/25 17:42 50F with history of breast cancer presents to ED needing 2nd rabies shot. Limitations: no limitations Related Data Home Medications ?Medication ?Instructions ?Recorded ?Confirmed oxybutynin chloride 10 mg 10 mg PO DAILY 05/23/20 01/25/22 tablet,extended release 24 hr diclofenac potassium 50 mg tablet 1 tab PO BID 01/25/22 01/25/22 ergocalciferol (vitamin D2) 1,250 1,250 mcg PO QWEEK 01/25/22 01/25/22 mcg (50,000 unit) capsule (Vitamin D2) famotidine-Ca carb-mag hydrox 10 1 tab PO QDAY PRN Acid Reflux 01/25/22 01/25/22 mg-800 mg-165 mg chewable tablet (Pepcid Complete) hydrocodone 7.5 mg-acetaminophen 0.5 tab PO Q8HR PRN Pain 01/25/22 01/25/22 325 mg tablet Held on 01/25/22. Instructions: Resume on 01/26/22. metformin 500 mg tablet 1 tab PO DAILY 01/25/22 01/25/22 montelukast 10 mg tablet 1 tab PO DAILY 01/25/22 01/25/22 vitamin E 268 mg (400 unit) capsule 1 cap PO DAILY 01/25/22 01/25/22 Previous Rx's ?Medication ?Instructions ?Recorded doxycycline hyclate 100 mg tablet 100 mg PO BID #14 tabs 05/15/25 Allergies Allergy/AdvReac Type Severity Reaction Status Date / Time No Known Allergies Allergy Verified 05/18/25 17:44 Review of Systems Review of Systems Systems Reviewed: All systems reviewed, normal except as documented Past Medical History Past Medical History NEUROLOGIC: Negative Neurological Disorders or Seizures CARDIAC: Negative Cardiac Disorders, Congestive Heart Failure or Hypertension RESPIRATORY: Negative Chronic Obstructive Pulmonary Disease (COPD) GASTROINTESTINAL: Positive Gastrointestinal Disorders and Obesity GENITOURINARY: Negative Genitourinary Disorders or Renal Disease REPRODUCTIVE: Positive Breast Cancer (right mastectomy); Negative Pelvic Inflammatory Disease MUSCULOSKELETAL: Negative Musculoskeletal Disorders ENT: Negative Glaucoma ENDOCRINE: Positive Endocrine Disorders and Diabetes Mellitus Type 2; Negative Diabetes Mellitus Type 1 HEMATOLOGIC: Negative Blood Disorders OTHER HISTORY: Positive Chemotherapy (breast cancer right 10 yeats ago), Radiation Therapy (10 years ago), Chicken Pox, Cancer and Breast Cancer (right mastectomy); Negative Autoimmune Disease, Shingles, Falls, Blood Transfusions, Anesthesia Reactions or Clostridium Difficile Family History FAMILY HISTORY: Positive Family Cardiac Disorders (mom htn) and Family Surgery (csection mom); Negative Family Psychiatric Problems, Family Respiratory Disorders, Family Gastrointestinal Problems or Family Cancer Surgical History SURGICAL: Positive Abdominal Surgery, Mastectomy (right side, multiple reconstruction) and Section (x3); Negative Cardiac Surgery, Endocrine Surgery, Ear Surgery, Nephrectomy, Joint Replacement or Neurologic Surgery Social History SMOKING STATUS: Never smoker ED Exam General Limitations: Present no limitations General appearance: Present alert and in no apparent distress Head Head exam: Present atraumatic Neck Neck exam: Present normal inspection, full ROM and trachea midline Chest Chest inspection: Present normal inspection and symmetric chest wall rise Psychiatric Psychiatric exam: Present normal affect and normal mood Skin Skin exam: Present warm, dry, intact and normal color Course Quality Measures none Orders Category Date Time Status Rabies Vaccine (Pcec)/Pf [Rabavert Rabies Vacc w/ Med 05/18/25 18:39 Discontinued Diluent] 2.5 unit IM .ONCE ONE Vital Signs Vital signs: Vital Signs Temperature 98.4 F 05/18/25 18:24 Pulse Rate 85 05/18/25 18:24 Respiratory Rate 18 05/18/25 18:24 Blood Pressure 128/68 05/18/25 18:24 Pulse Oximetry (%) 100 05/18/25 18:24 Oxygen Delivery Method Room Air 05/18/25 18:24 O2 at 100% on RA and WNLs Animal Bite MDM Narrative MDM Narrative:: 50F with history of breast cancer presents to ED needing 2nd rabies shot. Physical exam reveals well-appearing female. Patient is afebrile, calm, and alert. Meds and associate professor of counseling given. Patient data External records reviewed:: [facility] previous records Clinical information provided by:: patient Social determinants that could affect healthcare access:: none Patient has the following chronic illnesses:: breast cancer How is presenting disease/condition affected by chronic disease/condition?: exacerbated by Evaluation data The following diagnostics were reviewed and interpreted by me:: other (specify) (none) Lab and/or radiology exams considered but not ordered:: not ordered Interpretation Summary: n/a Medications / Prescriptions Medications or Prescriptions considered but not ordered:: ordered Medication administrations:: Medication Administration History Discontinued Medications Rabies Vaccine Chick Embryo Cell (Rabies Vaccine (Pcec)/Pf 2.5 Unit/Ml Vial) 2.5 unit IM .ONCE ONE Stop: 05/18/25 18:40 above Consultations Consultation(s) initiated? (list below): No Diagnosis Differential diagnosis animal bite: bite by animal, cat bite, dog bite and rabies contact Most likely diagnosis given after review of the tests above:: cat bite Admission Indicated Admission indicated?: not indicated Admission Request Was there a request for admission?: No Disposition Plan Disposition Plan: Discharge Discharge Attestation Discharge Attestation: The patient and all family members were given an opportunity to ask questions and understood the discharge instructions. Discharge instructions specifically effects, indications for sooner follow up or return to the emergency department, and the expected course of current diagnosis. Patient condition: Stable Discharge Plan Plan Patient Disposition: HOME (Self Care) Discharge Disposition comment: Stable Prescriptions/Referrals Prescriptions/Med Rec: No Action oxybutynin chloride 10 mg tablet extended release 24hr 10 mg PO DAILY metformin 500 mg tablet 1 tab PO DAILY Patient Comments: TAKE 1 TABLET BY MOUTH TWICE A DAY NEEDED hydrocodone-acetaminophen 7.5-325 mg tablet 0.5 tab PO Q8HR PRN (Reason: Pain) Patient Comments: TAKE 1/2 TABLET BY MOUTH EVERY DAY diclofenac potassium 50 mg tablet 1 tab PO BID Patient Comments: TAKE 1 TABLET BY MOUTH TWICE A DAY montelukast 10 mg tablet 1 tab PO DAILY Patient Comments: TAKE 1 TABLET BY MOUTH EVERY DAY ergocalciferol (vitamin D2) [Vitamin D2] 1,250 mcg (50,000 unit) Capsule 1,250 mcg PO QWEEK vitamin E 400 unit Capsule 1 cap PO DAILY Pepcid Complete 10-800-165 mg Tablet,Chewable 1 tab PO QDAY PRN (Reason: Acid Reflux) doxycycline hyclate 100 mg tablet 100 mg PO BID Qty: 14 0RF Referrals: Yves Odell MD [Primary Care Provider, Nephrology] - In 1 week Problem List Clinical Impression: Need for post exposure prophylaxis for rabies Patient/Caregiver Discharge Instructions Education Materials: Understanding Rabies Additional Instructions: Please follow-up with PCP within 24-48 hours and return immediately if symptoms worsen. Today is day 3. You will need additional vaccines on day 7 and 14, possibly 28. Print Language: Mozambican Stand Alone Forms: Patient Portal Info Letter PA/CORE FINISHER Supervising Physician PA/CORE FINISHER Supervising Physician: Dr. Carver
[2025-05-18] MEDS: RABIES VACCINE (PCEC)/PF 2.5 UNIT/ML VIAL IM (19:12)
== END 2025-05-18 19:52 | disposition home or self-care (01) ==
PROVIDERS: Emergency Provider Emergency Medicine; PCP Internal Medicine
DX: Z20.3 Contact with and (suspected) exposure to rabies (principal); Z23 Encounter for immunization
CPT/HCPCS: 90471; 90675; 99281

== ENCOUNTER 2025-05-22 14:31 | Emergency (ER) | payer BC, SELFPAY ==
[2025-05-22 15:14] VITALS: BP 144/85; PULSE 88; RESP 18; TEMP 37.1; O2SAT 98; BMI 40.6
--- NOTE | 2025-05-22 16:18 | EDNOTE_ITS ---
<Statement entered by Ana Pantoja MD - 05/23/25 06:24> As co-signing physician, I was present and available for consult prn. I concur with the plan and care as documented by the midlevel provider. ED General RME/HPI General Chief complaint: General Adult/Misc Complain Stated complaint: NEXT SHOT RABIES SHOT Arrival date/time: 05/22/25 14:31 RME / HPI RME / HPI narrative: 50-year-old patient presents emergency department needing that out final dose of rabies shot. She denies any other complaints. Related Data Home Medications ?Medication ?Instructions ?Recorded ?Confirmed oxybutynin chloride 10 mg 10 mg PO DAILY 05/23/2001/07 tablet,extended release 24 hr diclofenac potassium 50 mg tablet 1 tab PO BID 2 01/25/22 ergocalciferol (vitamin D2) 1,250 1,250 mcg PO QWEEK 0 01/25/22 01/25/22 mcg (50,000 unit) capsule (Vitamin D2) famotidine-Ca carb-mag hydrox 10 1 tab PO QDAY PRN Aci d Reflux 01/25/22 01/25/22 mg-800 mg-165 mg chewable tablet (Pepcid Complete) hydrocodone 7.5 mg-acetaminophen 0.5 tab PO Q8HR PRN P ain 01/25/22 01/25/22 325 mg tablet Held on 01/25/22. Instructions: Resume on 01/26/22. metformin 500 mg tablet 1 tab PO DAILY 01/25/2201/07 montelukast 10 mg tablet 1 tab PO DAILY 01/25/2201/07 vitamin E 268 mg (400 unit) capsule 1 cap PO DAILY 01/25/22 Previous Rx's ?Medication ?Instructions ?Recorded doxycycline hyclate 100 mg tablet 100 mg PO BID #14 ta bs 05/15/25 Allergies Allergy/AdvReac Type Severity Reaction Status Date / Time No Known Allergies Allergy Verified 05/18/25 17:44 Review of Systems Review of Systems Systems Reviewed: All systems reviewed, normal except as documented Constitutional Constitutional: Reports system reviewed and no additional complaints, except as documented Cardiovascular Cardiovascular: Reports system reviewed and no additional complaints, except as documented Respiratory Respiratory: Reports system reviewed and no additional complaints, except as documented Musculoskeletal Musculoskeletal: Reports system reviewed and no additional complaints, except as documented ED Exam Narrative Physical exam: 50-year-old patient presents emergency department to get her third and final repeat show she denies any other complaints. General General appearance: Present in no apparent distress Head Head exam: Present atraumatic ENT ENT exam: Present normal exam and normal oropharynx Chest Chest inspection: Present normal inspection Respiratory Respiratory exam: Present normal lung sounds bilaterally Cardiovascular Cardiovascular exam: Present regular rate and normal rhythm Extremities Exam Extremities exam: Present normal inspection Neurological Exam Neurological exam: Present alert and oriented X3 Psychiatric Psychiatric exam: Present normal affect Course Quality Measures none Orders Category Date Time Status Rabies Vaccine (Pcec)/Pf [Rabavert Rabies Vacc w/ Med 05/22/25 16:17 Once Diluent] 2.5 unit IM .ONCE ONE Vital Signs Vital signs: Vital Signs Temperature 98.8 F 05/22/25 15:14 Pulse Rate 88 05/22/25 15:14 Respiratory Rate 18 05/22/25 15:14 Blood Pressure 144/85 H 05/22/25 15:14 Pulse Oximetry (%) 98 05/22/25 15:14 Oxygen Delivery Method Room Air 05/22/25 15:14 Discharge Plan Plan Patient Disposition: HOME (Self Care) Prescriptions/Referrals Prescriptions/Med Rec: No Action oxybutynin chloride 10 mg tablet extended release 24hr 10 mg PO DAILY metformin 500 mg tablet 1 tab PO DAILY Patient Comments: TAKE 1 TABLET BY MOUTH TWICE A DAY NEEDED hydrocodone-acetaminophen 7.5-325 mg tablet 0.5 tab PO Q8HR PRN (Reason: Pain) Patient Comments: TAKE 1/2 TABLET BY MOUTH EVERY DAY diclofenac potassium 50 mg tablet 1 tab PO BID Patient Comments: TAKE 1 TABLET BY MOUTH TWICE A DAY montelukast 10 mg tablet 1 tab PO DAILY Patient Comments: TAKE 1 TABLET BY MOUTH EVERY DAY ergocalciferol (vitamin D2) [Vitamin D2] 1,250 mcg (50,000 unit) Capsule 1,250 mcg PO QWEEK vitamin E 400 unit Capsule 1 cap PO DAILY Pepcid Complete 10-800-165 mg Tablet,Chewable 1 tab PO QDAY PRN (Reason: Acid Reflux) doxycycline hyclate 100 mg tablet 100 mg PO BID Qty: 14 0RF Problem List Clinical Impression: Need for post exposure prophylaxis for rabies Patient/Caregiver Discharge Instructions Print Language: Thai Stand Alone Forms: [employer] Award Info., Patient Portal Info Letter
[2025-05-22] MEDS: RABIES VACCINE (PCEC)/PF 2.5 UNIT/ML VIAL IM (16:28)
== END 2025-05-22 16:34 | disposition home or self-care (01) ==
LOC: SERX 16:33
PROVIDERS: Emergency Provider Emergency Medicine; PCP Internal Medicine
DX: Z29.14 Encounter for prophylactic rabies immune globulin (principal); Z20.3 Contact with and (suspected) exposure to rabies
CPT/HCPCS: 90471; 90675; 99281

== ENCOUNTER 2025-05-29 13:40 | Emergency (ER) | payer BC, SELFPAY ==
[2025-05-29 13:47] VITALS: BP 112/79; PULSE 87; RESP 18; TEMP 37; O2SAT 98
--- NOTE | 2025-05-29 13:47 | PD.EDADULT ---
ED General RME/HPI General Chief complaint: General Adult/Misc Complain Stated complaint: 4TH DAY RABIES SHOT Time Seen by Provider: 05/29/25 13:47 Source: patient, RN notes reviewed and old records reviewed Arrival date/time: 05/29/25 13:40 Mode of arrival: ambulatory Limitations: no limitations RME / HPI RME / HPI narrative: 50yof presents to ED for fourth rabies vaccine shot after cat bite 2 weeks ago. Patient is asymptomatic. Puncture wound to left middle finger is well-healed. Related Data Home Medications ?Medication ?Instructions ?Recorded ?Confirmed oxybutynin chloride 10 mg 10 mg PO DAILY 05/23/20 01/25/22 tablet,extended release 24 hr diclofenac potassium 50 mg tablet 1 tab PO BID 01/25/22 01/25/22 ergocalciferol (vitamin D2) 1,250 1,250 mcg PO QWEEK 01/25/22 01/25/22 mcg (50,000 unit) capsule (Vitamin D2) famotidine-Ca carb-mag hydrox 10 1 tab PO QDAY PRN Acid Reflux 01/25/22 01/25/22 mg-800 mg-165 mg chewable tablet (Pepcid Complete) hydrocodone 7.5 mg-acetaminophen 0.5 tab PO Q8HR PRN Pain 01/25/22 01/25/22 325 mg tablet Held on 01/25/22. Instructions: Resume on 01/26/22. metformin 500 mg tablet 1 tab PO DAILY 01/25/22 01/25/22 montelukast 10 mg tablet 1 tab PO DAILY 01/25/22 01/25/22 vitamin E 268 mg (400 unit) capsule 1 cap PO DAILY 01/25/22 01/25/22 Previous Rx's ?Medication ?Instructions ?Recorded doxycycline hyclate 100 mg tablet 100 mg PO BID #14 tabs 05/15/25 Allergies Allergy/AdvReac Type Severity Reaction Status Date / Time No Known Allergies Allergy Verified 05/18/25 17:44 Review of Systems Review of Systems Systems Reviewed: All systems reviewed, normal except as documented Past Medical History Past Medical History GASTROINTESTINAL: Positive Obesity REPRODUCTIVE: Positive Breast Cancer (right mastectomy) ENDOCRINE: Positive Diabetes Mellitus Type 2 OTHER HISTORY: Positive Chemotherapy (breast cancer right 10 yeats ago), Radiation Therapy (10 years ago) and Breast Cancer (right mastectomy) Surgical History SURGICAL: Positive Abdominal Surgery, Mastectomy (right side, multiple reconstruction) and Section (x3) Social History SMOKING STATUS: Never smoker SUBSTANCE USE: does not use ALCOHOL: Never ED Exam General Limitations: Present no limitations General appearance: Present alert and in no apparent distress Head Head exam: Present atraumatic and normocephalic Eye Eye exam: Present normal appearance, PERRL and EOMI ENT ENT exam: Present normal exam and mucous membranes moist Neck Neck exam: Present normal inspection and full ROM Chest Chest inspection: Present normal inspection and symmetric chest wall rise Respiratory Respiratory exam: Present normal lung sounds bilaterally; Absent respiratory distress Cardiovascular Cardiovascular exam: Present regular rate and normal rhythm Extremities Exam Extremities exam: Present normal inspection, full ROM and normal capillary refill; Absent tenderness or joint swelling Neurological Exam Neurological exam: Present alert and oriented X3 Psychiatric Psychiatric exam: Present normal affect and normal mood Skin Skin exam: Present warm, dry, intact and normal color; Absent rash Course Quality Measures none Orders Category Date Time Status Rabies Vaccine (Pcec)/Pf [Rabavert Rabies Vacc w/ Med 05/29/25 13:47 Discontinued Diluent] 2.5 unit IM .ONCE ONE Vital Signs Vital signs: Vital Signs Temperature 98.6 F 05/29/25 13:47 Pulse Rate 87 05/29/25 13:47 Respiratory Rate 18 05/29/25 13:47 Blood Pressure 112/79 05/29/25 13:47 Pulse Oximetry (%) 98 05/29/25 13:47 Oxygen Delivery Method Room Air 05/29/25 13:47 Discharge Plan Plan Patient Disposition: HOME (Self Care) Patient condition on transfer: Stable Prescriptions/Referrals Prescriptions/Med Rec: No Action oxybutynin chloride 10 mg tablet extended release 24hr 10 mg PO DAILY metformin 500 mg tablet 1 tab PO DAILY Patient Comments: TAKE 1 TABLET BY MOUTH TWICE A DAY NEEDED hydrocodone-acetaminophen 7.5-325 mg tablet 0.5 tab PO Q8HR PRN (Reason: Pain) Patient Comments: TAKE 1/2 TABLET BY MOUTH EVERY DAY diclofenac potassium 50 mg tablet 1 tab PO BID Patient Comments: TAKE 1 TABLET BY MOUTH TWICE A DAY montelukast 10 mg tablet 1 tab PO DAILY Patient Comments: TAKE 1 TABLET BY MOUTH EVERY DAY ergocalciferol (vitamin D2) [Vitamin D2] 1,250 mcg (50,000 unit) Capsule 1,250 mcg PO QWEEK vitamin E 400 unit Capsule 1 cap PO DAILY Pepcid Complete 10-800-165 mg Tablet,Chewable 1 tab PO QDAY PRN (Reason: Acid Reflux) doxycycline hyclate 100 mg tablet 100 mg PO BID Qty: 14 0RF Problem List Clinical Impression: Rabies vaccine administered, Cat bite Patient/Caregiver Discharge Instructions Education Materials: ED Cat Bite Print Language: Scottish Stand Alone Forms: [employer] Award Info., Patient Portal Info Letter PA/AYSHA Supervising Physician PA/DIAL BRUSHER Supervising Physician: Surekha ROY Narrative MDM hospital course (for use when minimal MDM required): Patient received fourth rabies vaccine shot today. She will return on 06/12 for a 5th shot per oncology physician order. No evidence of infection from cat bite. Stable for discharge, RTED precautions given. Medical Records reviewed [facility] (ED visit 05/22/2025 for rabies vaccine) Meds/Rx considered, not ordered None Labs/Rad/Tests considered, not ordered None Chronic Illness/Social Conditions which may negatively complicate care or outcome(s)-explain: None or not applicable Labs Labs: none Imaging Imaging interpretation: none Medication Administration(s) Medication Administration History Discontinued Medications Rabies Vaccine Chick Embryo Cell (Rabies Vaccine (Pcec)/Pf 2.5 Unit/Ml Vial) 2.5 unit IM .ONCE ONE Stop: 05/29/25 13:48 Last Admin: 05/29/25 14:07 Dose: 2.5 unit Documented By: Above medication administered in ED Diagnosis Differential Diagnosis ED Complaint MDM: Prophylactic injection, cellulitis, abscess, septic joint Diagnoses ruled out and/or further discussions: Rabies vaccine prophylaxis
[2025-05-29] MEDS: RABIES VACCINE (PCEC)/PF 2.5 UNIT/ML VIAL IM (14:07)
== END 2025-05-29 14:22 | disposition home or self-care (01) ==
LOC: SERX 14:16
PROVIDERS: Emergency Provider Emergency Medicine; PCP Internal Medicine
DX: S61.233A Puncture wound without foreign body of left middle finger without damage to nail, initial encounter (principal); W55.01XA Bitten by cat, initial encounter; Z23 Encounter for immunization
CPT/HCPCS: 90471; 90675; 99281

== ENCOUNTER 2025-06-12 17:09 | Emergency (ER) | payer BC, SELFPAY ==
[2025-06-12 17:10] VITALS: BMI 37.8
[2025-06-12 17:31] VITALS: BP 118/68; PULSE 78; RESP 20; TEMP 37.1; O2SAT 97
--- NOTE | 2025-06-12 17:37 | PD.EDANIML ---
ED Animal Bite RME/HPI General Chief Complaint: General Adult/Misc Complain Stated Complaint: NEED RABIES SHOT Time Seen by Provider: 06/12/25 17:17 Source: patient, RN notes reviewed and old records reviewed Arrival date/time: 06/12/25 17:09 Mode of arrival: ambulatory Limitations: no limitations RME / HPI RME / HPI narrative: 50yof presents to ED for fifth rabies vaccine shot (per oncologist order) after cat bite 4 weeks ago. Patient is asymptomatic. Puncture wound to left middle finger is well-healed. Related Data Home Medications ?Medication ?Instructions ?Recorded ?Confirmed oxybutynin chloride 10 mg 10 mg PO DAILY 05/23/20 01/25/22 tablet,extended release 24 hr diclofenac potassium 50 mg tablet 1 tab PO BID 01/25/22 01/25/22 ergocalciferol (vitamin D2) 1,250 1,250 mcg PO QWEEK 01/25/22 01/25/22 mcg (50,000 unit) capsule (Vitamin D2) famotidine-Ca carb-mag hydrox 10 1 tab PO QDAY PRN Acid Reflux 01/25/22 01/25/22 mg-800 mg-165 mg chewable tablet (Pepcid Complete) hydrocodone 7.5 mg-acetaminophen 0.5 tab PO Q8HR PRN Pain 01/25/22 01/25/22 325 mg tablet Held on 01/25/22. Instructions: Resume on 01/26/22. metformin 500 mg tablet 1 tab PO DAILY 01/25/22 01/25/22 montelukast 10 mg tablet 1 tab PO DAILY 01/25/22 01/25/22 vitamin E 268 mg (400 unit) capsule 1 cap PO DAILY 01/25/22 01/25/22 Previous Rx's ?Medication ?Instructions ?Recorded doxycycline hyclate 100 mg tablet 100 mg PO BID #14 tabs 05/15/25 Allergies Allergy/AdvReac Type Severity Reaction Status Date / Time No Known Allergies Allergy Verified 06/12/25 17:11 Review of Systems Review of Systems Systems Reviewed: All systems reviewed, normal except as documented Past Medical History Past Medical History GASTROINTESTINAL: Positive Obesity REPRODUCTIVE: Positive Breast Cancer (right mastectomy) ENDOCRINE: Positive Diabetes Mellitus Type 2 OTHER HISTORY: Positive Chemotherapy (breast cancer right 10 yeats ago), Radiation Therapy (10 years ago) and Breast Cancer (right mastectomy) Surgical History SURGICAL: Positive Abdominal Surgery, Mastectomy (right side, multiple reconstruction) and Section (x3) Social History SMOKING STATUS: Never smoker SUBSTANCE USE: does not use ALCOHOL: Never ED Exam General Limitations: Present no limitations General appearance: Present alert and in no apparent distress Head Head exam: Present atraumatic and normocephalic Eye Eye exam: Present normal appearance, PERRL and EOMI ENT ENT exam: Present normal exam and mucous membranes moist Neck Neck exam: Present normal inspection and full ROM Chest Chest inspection: Present normal inspection and symmetric chest wall rise Respiratory Respiratory exam: Present normal lung sounds bilaterally; Absent respiratory distress Cardiovascular Cardiovascular exam: Present regular rate and normal rhythm Extremities Exam Extremities exam: Present normal inspection and full ROM Neurological Exam Neurological exam: Present alert and oriented X3 Psychiatric Psychiatric exam: Present normal affect and normal mood Skin Skin exam: Present warm, dry, intact and normal color Course Quality Measures none Orders Category Date Time Status Rabies Vaccine (Pcec)/Pf [Rabavert Rabies Vacc w/ Med 06/12/25 17:37 Discontinued Diluent] 2.5 unit IM .ONCE ONE Vital Signs Vital signs: Vital Signs Temperature 98.7 F 06/12/25 17:31 Pulse Rate 78 06/12/25 17:31 Respiratory Rate 20 06/12/25 17:31 Blood Pressure 118/68 06/12/25 17:31 Pulse Oximetry (%) 97 06/12/25 17:31 Oxygen Delivery Method Room Air 06/12/25 17:31 Animal Bite MDM Narrative MDM Narrative:: 50yof presents to ED for fifth rabies vaccine shot (per oncologist order) after cat bite 2 weeks ago. Patient is asymptomatic. Puncture wound to left middle finger is well-healed. Rabies vaccine administered. No evidence of infection. Stable for discharge, RTED precautions given. Patient data External records reviewed:: [facility] previous records (ED visit 05/29/2025 for rabies vaccination) Clinical information provided by:: patient Social determinants that could affect healthcare access:: none Patient has the following chronic illnesses:: Breast cancer, diabetes, obesity How is presenting disease/condition affected by chronic disease/condition?: uneffected by Evaluation data The following diagnostics were reviewed and interpreted by me:: other (specify) (None) Lab and/or radiology exams considered but not ordered:: None Interpretation Summary: na Medications / Prescriptions Medications or Prescriptions considered but not ordered:: No antibiotics recommended at this time Medication administrations:: Medication Administration History Discontinued Medications Rabies Vaccine Chick Embryo Cell (Rabies Vaccine (Pcec)/Pf 2.5 Unit/Ml Vial) 2.5 unit IM .ONCE ONE Stop: 06/12/25 17:38 Last Admin: 06/12/25 18:29 Dose: 2.5 unit Documented By: Above medication administered in ED Consultations Consultation(s) initiated? (list below): No Diagnosis Differential diagnosis animal bite: cat bite and other (Puncture wound, laceration, abrasion, avulsion, cellulitis, abscess, need for rabies vaccine) Most likely diagnosis given after review of the tests above:: Need for rabies vaccine Admission Indicated Admission indicated?: not indicated Admission Request Was there a request for admission?: No Disposition Plan Disposition Plan: Discharge Discharge Attestation Discharge Attestation: The patient and all family members were given an opportunity to ask questions and understood the discharge instructions. Discharge instructions specifically effects, indications for sooner follow up or return to the emergency department, and the expected course of current diagnosis. Patient condition: Stable Discharge Plan Plan Patient Disposition: HOME (Self Care) Patient condition on transfer: Stable Prescriptions/Referrals Prescriptions/Med Rec: No Action oxybutynin chloride 10 mg tablet extended release 24hr 10 mg PO DAILY metformin 500 mg tablet 1 tab PO DAILY Patient Comments: TAKE 1 TABLET BY MOUTH TWICE A DAY NEEDED hydrocodone-acetaminophen 7.5-325 mg tablet 0.5 tab PO Q8HR PRN (Reason: Pain) Patient Comments: TAKE 1/2 TABLET BY MOUTH EVERY DAY diclofenac potassium 50 mg tablet 1 tab PO BID Patient Comments: TAKE 1 TABLET BY MOUTH TWICE A DAY montelukast 10 mg tablet 1 tab PO DAILY Patient Comments: TAKE 1 TABLET BY MOUTH EVERY DAY ergocalciferol (vitamin D2) [Vitamin D2] 1,250 mcg (50,000 unit) Capsule 1,250 mcg PO QWEEK vitamin E 400 unit Capsule 1 cap PO DAILY Pepcid Complete 10-800-165 mg Tablet,Chewable 1 tab PO QDAY PRN (Reason: Acid Reflux) doxycycline hyclate 100 mg tablet 100 mg PO BID Qty: 14 0RF Problem List Clinical Impression: Encounter for repeat administration of rabies vaccination Patient/Caregiver Discharge Instructions Print Language: [place] Stand Alone Forms: [facility] Award Info., Patient Portal Info Letter PA/CREDIT INVESTIGATOR Supervising Physician PA/CREDIT INVESTIGATOR Supervising Physician: Surekha
[2025-06-12] MEDS: RABIES VACCINE (PCEC)/PF 2.5 UNIT/ML VIAL IM (18:29)
== END 2025-06-12 18:40 | disposition home or self-care (01) ==
LOC: SERX 18:40
PROVIDERS: Emergency Provider Emergency Medicine; PCP Internal Medicine
DX: Z23 Encounter for immunization (principal); Z20.3 Contact with and (suspected) exposure to rabies
CPT/HCPCS: 90471; 90675; 99281